=== PATIENT | female | born 1955 | race Caucasian/White ===

== ENCOUNTER 2021-07-10 02:40 | Outpatient (CLI) | payer MEDICARE, MEDICAID, SELFPAY ==
[2021-07-10 09:08] LABS: ALT 57 U/L (14-59); AST 28 U/L (15-37); Albumin 3.9 g/dL (3.4-5.0); Alkaline Phosphatase 117 U/L (46-116); Anion Gap 8.3 mmol/L (3-11); BUN 12 mg/dL (7-18); Bilirubin, Total 0.9 mg/dL (0.2-1.0); CO2 30.7 mmol/L (21.0-32.0); CREATININE 0.7 mg/dL (0.55-1.02); Calcium 8.9 mg/dL (8.5-10.1); Calculated LDL 155 mg/dL (<100); Chloride 98 mmol/L (98-107); Cholesterol 281 mg/dL (<200); Glucose 101 mg/dL (74-106); HDL Cholesterol 110 mg/dL (40-60); Potassium 3.6 mmol/L (3.5-5.1); Sodium 137 mmol/L (136-145); TSH (W/Ref FT4) 4.45 uIU/mL (0.36-3.74); Triglyceride 82 mg/dL (<150)
[2021-07-10 09:44] LABS: FREE T4 1.04 ng/dL (0.76-1.46)
== END 2021-07-10 02:41 | disposition home or self-care (01) ==
LOC: LBO 02:41
DX: E78.5 Hyperlipidemia, unspecified (principal); G47.00 Insomnia, unspecified
CPT/HCPCS: 36415; 80053; 80061; 84439; 84443

== ENCOUNTER 2023-04-23 21:23 | Outpatient (REF) | payer MEDICARE, SELFPAY ==
[2023-04-23 22:53] LABS: ALT 86 U/L (14-59); AST 32 U/L (15-37); Albumin 3.9 g/dL (3.4-5.0); Alkaline Phosphatase 168 U/L (46-116); Anion Gap 7.9 mmol/L (3-11); BUN 14 mg/dL (7-18); Bilirubin, Total 0.9 mg/dL (0.2-1.0); CO2 30.1 mmol/L (21.0-32.0); CREATININE 0.8 mg/dL (0.55-1.02); Calcium 9.3 mg/dL (8.5-10.1); Calculated LDL 132 mg/dL (<100); Chloride 94 mmol/L (98-107); Cholesterol 257 mg/dL (<200); Estimated GFR 80.21 (mL/min/1.73m2); Glucose 92 mg/dL (74-106); HDL Cholesterol 108 mg/dL (40-60); Potassium 3.5 mmol/L (3.5-5.1); Sodium 132 mmol/L (136-145); TSH (W/Ref FT4) 5.69 uIU/mL (0.36-3.74); Total Protein 7.2 g/dL (6.4-8.2); Triglyceride 89 mg/dL (<150)
== END 2023-04-23 21:24 | disposition home or self-care (01) ==
LOC: LBN 21:23
PROVIDERS: Visit Provider Nurse Practitioner Family
DX: I10 Essential (primary) hypertension (principal); E78.5 Hyperlipidemia, unspecified; E03.9 Hypothyroidism, unspecified
CPT/HCPCS: 80053; 80061; 84439; 84443

== ENCOUNTER → 2023-08-13 04:44 | Outpatient (CLI) | payer MEDICARE, SELFPAY ==
--- NOTE | 2023-08-13 08:30 | DI.US_ITS ---
Exam(s) US ABDOMEN EXAM: US ABDOMEN CLINICAL HISTORY: postprandial RUQ pain,elevated LFTs,R10.11 TECHNIQUE: Ultrasound of complete upper abdomen performed using standard protocol. COMPARISON: No exams were available for comparison FINDINGS: There is no ascites evident. LIVER: There are no hepatic lesions evident nor obvious dilatation of intrahepatic ducts. GALLBLADDER/BILIARY: There are no gallstones. No gallbladder wall edema nor pericholecystic fluid. The common hepatic duct ismildly prominent,, measuring 7mm at the level of rolanda hepatis. PANCREAS: There is no evidence of pancreatic mass nor dilatation of the pancreatic duct. SPLEEN: The spleen is not enlarged and there are no intrasplenic lesions evident. KIDNEYS:Kidneys exhibit normal size with no evidence of solid mass, calculus, nor hydronephrosis. No cortical cysts evident. ABDOMINAL AORTA: There is no evidence of abdominal aortic aneurysm. IVC: Normal diameter where visualized. IMPRESSION: 1. No evidence of cholelithiasis. CBD diameter is minimally prominent, measuring 7 mm. No obvious calculus seen within the CBD. 2. No other significant ultrasound findings in the upper abdomen. 3. There is no ascites. DATA REPOSITORY:
== END ==
PROVIDERS: PCP Nurse Practitioner Family; Visit Provider Nurse Practitioner Family
DX: R10.11 Right upper quadrant pain (principal); R94.5 Abnormal results of liver function studies
CPT/HCPCS: 76700

== ENCOUNTER 2024-08-10 22:07 | Outpatient (REF) | payer MEDICARE, SELFPAY ==
[2024-08-10 22:51] LABS: ALT 75 U/L (14-59); AST 45 U/L (15-37); Alkaline Phosphatase 153 U/L (46-116); Anion Gap 7.2 mmol/L (3-11); BUN 24 mg/dL (7-18); CO2 30.8 mmol/L (21.0-32.0); CREATININE 0.8 mg/dL (0.55-1.02); Calcium 9.6 mg/dL (8.5-10.1); Chloride 98 mmol/L (98-107); Estimated GFR 79.71 (mL/min/1.73m2); Glucose 96 mg/dL (74-106); Potassium 3.9 mmol/L (3.5-5.1); Sodium 136 mmol/L (136-145); Total Protein 6.9 g/dL (6.4-8.2)
[2024-08-11 21:05] LABS: Calculated LDL 82 mg/dL (<100); Cholesterol 207 mg/dL (<200); HDL Cholesterol 108 mg/dL (>or=50); Triglyceride 88 mg/dL (<150)
== END 2024-08-10 22:08 | disposition home or self-care (01) ==
LOC: LBN 22:07
PROVIDERS: PCP Nurse Practitioner Family; Visit Provider Nurse Practitioner Family
DX: E78.2 Mixed hyperlipidemia (principal)
CPT/HCPCS: 80053; 80061

== ENCOUNTER 2024-08-25 01:47 | Outpatient (CLI) | payer MEDICARE, SELFPAY ==
--- NOTE | 2024-08-25 07:30 | DI.DEXA_ITS ---
Exam(s) XR DEXA BONE DENSITY W/WO PHONG EXAM: XR DEXA BONE DENSITY W/WO PHONG CLINICAL HISTORY: Annual exam,MENOPAUSAL DISORDER,N95.9,OSTEOPOROSIS SCREENING TECHNIQUE: Hologic Horizon C densitometer analysis of left hip, lumbar spine and left forearm. Lat eral survey image of the thoracic and lumbar spine. COMPARISON: No exams were available for comparison FINDINGS: Lateral view of the thoracic and lumbar spine shows no evidence of compression fractures. Bone mineral density measurements of the lumbar spine correspond to a total T-score of -0.4, in the normal range. Bone mineral density measurements of the left hip correspond to a total T-score of -1.6. The femora l neck T-score is -2.1, in the osteopenic range. Theleft forearm bone mineral density measurements correspond to a T-score of the distal 3rd of -1.2, in the osteopenic range. IMPRESSION: Normal bone mineral density of the spine. Osteopenia of the hip and forearm.
== END 2024-08-25 02:07 ==
LOC: DI 01:47
PROVIDERS: PCP Nurse Practitioner Family; Visit Provider Nurse Practitioner Family
DX: N95.9 Unspecified menopausal and perimenopausal disorder (principal); Z13.820 Encounter for screening for osteoporosis; M85.89 Other specified disorders of bone density and structure, multiple sites
CPT/HCPCS: 77080

== ENCOUNTER 2024-10-29 15:12 | Outpatient (CLI) | payer MEDICARE, SELFPAY ==
--- NOTE | 2024-10-29 15:00 | RT.EKG_ITS ---
APPROVED REPORT Exam: Resting ECG Reason for Exam: chest discomfort Patient Location: O HR:79 bpm ECG Measurements Heart Rate 79 AXIS WY 127 P 58 QRSd 92 QRS 30 QT 380 T 84 QTc 436 Conclusion Sinus rhythm...normal P axis, V-rate 50- 99 Low voltage, precordial leads...precordial leads <1.0mV Otherwise normal ECG
== END 2024-10-29 15:13 | disposition home or self-care (01) ==
LOC: DI.CM 15:13
PROVIDERS: PCP Nurse Practitioner Family; Visit Provider Physician Assistant Medical
DX: R07.89 Other chest pain (principal); I49.9 Cardiac arrhythmia, unspecified
CPT/HCPCS: 93010

== ENCOUNTER 2024-10-29 15:45 | Emergency (ER) | payer MEDICARE, MEDICAID, SELFPAY ==
--- NOTE | 2024-10-29 15:45 | RT.EKG_ITS ---
APPROVED REPORT Exam: Resting ECG Reason for Exam: arrythmyia Patient Location: E HR:80 bpm ECG Measurements Heart Rate 80 AXIS MT 130 P 63 QRSd 98 QRS 16 QT 381 T 80 QTc 441 Conclusion Sinus rhythm...normal P axis, V-rate 60- 99 Low voltage, precordial leads...precordial leads <1.0mV Sinus rhythm normal axis normal intervals no acute ischemic changes
[2024-10-29 15:59] VITALS: BP 143/84; PULSE 77; RESP 20; TEMP 36.5; O2SAT 93
--- NOTE | 2024-10-29 16:15 | DI.RAD_ITS ---
Exam(s) XR CHEST 2V PA LATERAL EXAM: XR CHEST 2V PA LATERAL CLINICAL HISTORY: shortness of breath, cough TECHNIQUE: 2D digital imaging was performed. Two views. COMPARISON: No exams were available for comparison FINDINGS: HEART: Normal size. Aorta: Not dilated. PULMONARY VASCULATURE: Normal. MEDIASTINUM: Hiatal hernia. LUNGS: Clear. PLEURAL SPACE: No pleural effusion or pneumothorax. BONE:Unremarkable for age. SOFT TISSUES: Unremarkable. IMPRESSION: No acute abnormality. DATA REPOSITORY: RADIATION DOSE DELIVERED:
[2024-10-29 17:13] VITALS: BP 127/81; PULSE 79; RESP 18; O2SAT 92
[2024-10-29] MEDS: Albuterol HFA 8 GM 60 PUFF INH IH (17:17)
[2024-10-29] MEDS: predniSONE 20 MG TAB 40 MG PO (17:18)
--- NOTE | 2024-10-29 20:52 | W.ED.GENAD ---
Discharge Plan Disposition Patient Disposition: Home Condition: Stable Discharge Details Clinical Impression: Bronchitis Primary Care Provider: Jam Hernandez ED Provider: Ana Rosa Moreno Home Meds and New Rx's Prescriptions: Continued acetaminophen [Tylenol Arthritis Pain] 650 mg tablet extended release 650 mg PO Q12H PRN atorvastatin 10 mg tablet 10 mg PO QPM Qty: 90 3RF hydrochlorothiazide 25 mg tablet 25 mg PO QAM Qty: 90 3RF albuterol sulfate 90 mcg/actuation HFA aerosol inhaler 2 inh inhalation Q6H PRN (Reason: shortness of breath or wheezing) Qty: 18 4RF Discharge Instructions Instructions: Bronchitis, Adult ED Additional Instructions: albuterol 2 puffs every 4-6 hours as needed for cough, wheeze, shortness of breath take steroids daily, starting tomorrow (received dose today) recheck with pcp next week return with worsening shortness of breath, fever, chills, or should any new concerns arise Referrals: Jam Hernandez, VIRT[employer]ATION ARCHITECT [Primary Care Provider, Medicine] Discharge Data Discharge Date/Time-TO BE ENTERED AT DEPARTURE: 10/29/24 17:19 HPI General Date/Time Provider Initiated Documentation: 10/29/24 16:17. HPI Narrative: 68-year-old female with upper respiratory symptoms for 3 weeks, including wheezing and congestion. Worried about pneumonia. No calf pain, swelling, recent surgeries, long drives, or overt chest pain. No history of COPD or asthma. Remote history of smoking tobacco. Related Data Home Medications ?Medication ?Instructions ?Recorded ?Confirmed acetaminophen 650 mg 650 mg PO Q12H PRN 08/09/23 10/29/24 tablet,extended release (Tylenol Arthritis Pain) atorvastatin 10 mg tablet 10 mg PO QPM #90 tabs 04/27/24 10/29/24 hydrochlorothiazide 25 mg tablet 25 mg PO QAM #90 tabs 04/27/24 10/29/24 albuterol sulfate 90 mcg/actuation 2 inh inhalation Q6H PRN shortness 09/18/24 10/29/24 aerosol inhaler of breath or wheezing #18 grams Previous Rx's ?Medication ?Instructions ?Recorded atorvastatin 10 mg tablet 10 mg PO QPM #90 tabs 04/27/24 hydrochlorothiazide 25 mg tablet 25 mg PO QAM #90 tabs 04/27/24 albuterol sulfate 90 mcg/actuation 2 inh inhalation Q6H PRN shortness 09/18/24 aerosol inhaler of breath or wheezing #18 grams Allergies Allergy/AdvReac Type Severity Reaction Status Date / Time No Known Allergies Allergy Unverified 10/29/24 16:03 General Stated Complaint: RespSymp DHRUV: 3 Exam Narrative Exam Narrative: General Appearance: Alert and oriented, in no acute distress. Vital signs: Within normal limits. HEENT: Within normal limits. Respiratory: Scant scattered wheezes, lungs mildly diminished. Cardiovascular: Regular heart rate, no murmur or rub. Gastrointestinal: Nontender abdomen. Extremities: No peripheral edema. Skin: Warm and dry, no rash. Neurological: Normal. Course Vital Signs Vital signs: Vital Signs Temperature 36.5 C 10/29/24 15:59 Pulse 77 10/29/24 15:59 Respiratory Rate 20 10/29/24 15:59 Blood Pressure 143/84 H 10/29/24 15:59 Pulse Oximetry 93 10/29/24 15:59 Temperature 36.5 C 10/29/24 15:59 Pulse 79 10/29/24 17:13 Respiratory Rate 18 10/29/24 17:13 Respiratory Effort Normal, Non-Labored 10/29/24 17:13 Blood Pressure 127/81 10/29/24 17:13 Pulse Oximetry 92 10/29/24 17:13 Oxygen Delivery Method Room Air 10/29/24 15:59 Oxygen Flow Rate 0 10/29/24 15:59 Medical Decision Making - Chest x-ray: - No acute abnormality - EKG: - No evidence of obvious ischemia Initial Assessment: 68-year-old female with upper respiratory symptoms for 3 weeks, wheezing, and congestion. No history of COPD or asthma. Remote history of smoking. Differential Diagnosis: - Pneumonia: Chest x-ray ordered, no acute abnormalities. No antibiotics indicated. - Bronchitis: Suspected due to wheezing and congestion. Treated with albuterol inhaler and steroids. - Cardiac etiology: EKG reviewed, no evidence of ischemia. Cardiac exam regular. ED Course: - Chest x-ray: No acute abnormalities. - Albuterol inhaler: Four treatments administered. - Steroids administered. - EKG: No evidence of obvious ischemia. - Oxygen treatment: Within normal limits. Final Assessment: Upper respiratory symptoms treated with albuterol inhaler and steroids. Chest x-ray and EKG reviewed, no acute abnormalities or ischemia. Clinical Impression: - Bronchitis Disposition: - Discharge home. Return precautions reviewed and understood. Quality:SDOH Health Related Social Needs: Health related social needs inadequate housing house/econ circumstance PFSH All Active Problems (Updated 10/29/24 @ 17:06 by VINCENT Patel) Bronchitis (Acute) Right upper quadrant pain (Acute) Bunion of left foot (Acute) Knee pain, left (Acute) Essential hypertension (Chronic) Treatment initiated 05/2021 Grief reaction with prolonged bereavement (Chronic) Continues to grieve 1 year post loss of brother in 2020 Hypothyroidism (acquired) (Chronic 03/19/17) Hyperlipidemia (Chronic) 06/2021 ACC/AHA Risk Calc. = 12.0% - agrees to start Atorvastatin Surgical History History of hernia repair Family History Mother , Age 60 Hypertension Stroke Father , Age 82 Cancer Brother No problems noted. Maternal Grandmother , Age 68 No problems noted. Paternal Grandfather Cancer Social History Smoking/Tobacco Use Status: Never Second Hand Exposure: No Smoking risk assessment performed?: Yes Alcohol Intake: never Details: Declined to answer Drug use: Never Substance use type: does not use Counseling given: No Adopted: No Caregiver/Support person: No Household members: spouse Housing: other Details: Mobile Home Number of Children: 1 number of grandchildren: 3 Education Level: high school Details: 12 grade Sexually active: No Do you think of yourself as: straight/heterosexual Current gender identity: female What is your relationship status?: Do you belong to any clubs or organized social groups?: no Panel score (0-1 are the most socially isolated patients): 1 Duration: < 15 minutes/day Seatbelt use: always Helmet use: No Working smoke detector in home: Yes Carbon monox detector in home: Yes Firearms in home: Yes Firearms unloaded and locked: Yes Do you feel safe at home: Yes Do you feel safe in your relationship?: Yes
== END 2024-10-29 17:19 | disposition home or self-care (01) ==
PROVIDERS: Emergency Provider Physician Assistant; PCP Nurse Practitioner Family
DX: J20.9 Acute bronchitis, unspecified (principal); I10 Essential (primary) hypertension; E78.5 Hyperlipidemia, unspecified; E03.9 Hypothyroidism, unspecified
CPT/HCPCS: 93005; 99284; 71046; 93010; 99283; J7512

== ENCOUNTER 2024-12-30 14:07 | Outpatient (REF) | payer MEDICARE, MEDICAID, SELFPAY | END 2024-12-30 14:08 | disposition home or self-care (01) | LOC: LBN 14:07 | PROVIDERS: PCP Nurse Practitioner Family; Visit Provider Nurse Practitioner Family | DX: N39.0 Urinary tract infection, site not specified (principal) | CPT/HCPCS: 87077; 87086; 87186 ==